=== PATIENT | male | born 1985 | race Two or more races ===

== ENCOUNTER 2021-07-29 14:03 | Inpatient (IN) | payer OTHER ==
[~2021-07-29] VITALS: Ht 172.7 cm; Wt 75.0 kg
[2021-07-29 20:12] LABS: BASOPHILS % (AUTO) 0.3 % (0.0-2.0); EOSINOPHILS % (AUTO) 0.7 % (1.0-6.0); HEMATOCRIT 39.7 % (41-53); HEMOGLOBIN 13.8 g/dL (13.5-17.5); LYMPHOCYTES # (AUTO) 1.7 K/uL (1.0-4.8); LYMPHOCYTES % (AUTO) 19.2 % (22.0-44.0); MEAN CORPUSCULAR HEMOGLOBIN 30.1 pg (26.0-34.0); MEAN CORPUSCULAR HGB CONC 34.8 G/dL (31.0-37.0); MEAN CORPUSCULAR VOLUME 87 fL (80-100); MONOCYTES # (AUTO) 0.5 K/uL (0.1-1.0); MONOCYTES % (AUTO) 5.8 % (2.0-9.0); NEUTROPHILS # (AUTO) 6.4 K/uL (1.8-7.7); PLATELET COUNT (AUTO) 388 K/uL (150-450); RED BLOOD CELL COUNT(AUTO) 4.59 MIL/uL (4.50-5.90); RED CELL DISTRIBUTION WIDTH 13.6 % (11.5-14.5)
[2021-07-29 20:32] LABS: ANION GAP 8 mmol/L (8-16); CALCIUM, TOTAL 9.7 mg/dL (8.8-10.5); CARBON DIOXIDE 29 mmol/L (22-29); CHLORIDE 103 mmol/L (98-107); CREATININE 1.05 mg/dL (0.60-1.30); GLOMERULAR FILTR. RATE CALC > 60 mL/min (>60); GLUCOSE,RANDOM 109 mg/dL (70-110); POTASSIUM 3.4 mmol/L (3.5-5.1); SODIUM SERUM 140 mmol/L (136-145); UREA NITROGEN, BLOOD 12 mg/dL (7-18)
[2021-07-29 20:37] LABS: ALANINE AMINOTRANSFERASE 17 U/L (12-78); ALBUMIN 3.6 g/dL (3.4-5.0); ALKALINE PHOSPHATASE 94 U/L (46-116); ASPARTATE AMINOTRANSFERASE 12 U/L (15-37); BILIRUBIN,TOTAL 0.7 mg/dL (0.1-1.0); TOTAL PROTEIN, SERUM 8.4 g/dL (6.4-8.2)
[2021-07-29] MEDS ORDERED: ONDANSETRON HCL 4 MG/2 ML VIAL IVP PRN (23:00)
[2021-07-29 23:13] LABS: COVID AG,FIA SOURCE NASAL SWAB
[2021-07-30] VITALS (8 sets, daily range): BP systolic 91–131; BP diastolic 20–82
[2021-07-30] MEDS: LORazepam 2 MG TABLET PO PRN ×2 (00:25→09:59)
[2021-07-30] MEDS ORDERED: LORazepam 2 MG TABLET PO PRN (07:00)
[2021-07-30] MEDS ORDERED: LOPERAMIDE HCL 2 MG CAPSULE PO PRN (14:30)
[2021-07-30] MEDS ORDERED: METOCLOPRAMIDE HCL 5 MG/ML 2 ML VIAL IVP PRN (14:30)
[2021-07-30] MEDS ORDERED: LORazepam 2 MG/ML VIAL IVP PRN (14:30)
[2021-07-30] MEDS: ACETAMINOPHEN 325 MG TABLET PO PRN (20:19)
[2021-07-30] MEDS: TEMAZEPAM 15 MG CAPSULE PO SCH (20:19)
[2021-07-31 04:27] VITALS: BP 122/76
[2021-07-31 08:00] VITALS: BP 129/71
[2021-07-31 11:00] VITALS: BP 114/64
[2021-07-31] MEDS: ACETAMINOPHEN 325 MG TABLET PO PRN ×2 (15:03→20:01)
[2021-07-31 15:53] VITALS: BP 97/52
[2021-07-31] MEDS: LORazepam 1 MG TABLET PO PRN (17:53)
[2021-07-31] MEDS: TEMAZEPAM 15 MG CAPSULE PO SCH (20:01)
[2021-07-31 20:42] VITALS: BP 119/66
[2021-07-31 20:57] LABS: AMPHET/METH SCREEN,URINE POSITIVE (NEGATIVE); BARBITURATE SCREEN, URINE NEGATIVE (NEGATIVE); BENZODIAZEPINES SCREEN,URINE NEGATIVE (NEGATIVE); CANNABINOID SCREEN,URINE NEGATIVE (NEGATIVE); COCAINE SCREEN,URINE NEGATIVE (NEGATIVE); METHADONE SCREEN, URINE NEGATIVE (NEGATIVE); OPIATE SCREEN,URINE NEGATIVE (NEGATIVE)
[2021-07-31 20:58] LABS: PHENCYCLIDINE SCREEN,URINE NEGATIVE (NEGATIVE)
[2021-08-01 05:07] VITALS: BP 109/67
[2021-08-01] MEDS ORDERED: LORazepam 1 MG TABLET PO PRN (07:00)
[2021-08-01] MEDS: DICYCLOMINE HCL 10 MG CAPSULE PO PRN ×2 (08:54→15:05)
[2021-08-01 11:00] VITALS: BP 102/71
[2021-08-01] MEDS: LORazepam 1 MG TABLET PO PRN (15:05)
[2021-08-01 16:24] VITALS: BP 102/73
[2021-08-01] MEDS: TEMAZEPAM 15 MG CAPSULE PO SCH (20:29)
[2021-08-01] MEDS: ACETAMINOPHEN 325 MG TABLET PO PRN (20:29)
[2021-08-02 04:42] VITALS: BP 116/64
[2021-08-02] MEDS ORDERED: LORazepam 1 MG TABLET PO PRN (07:00)
[2021-08-02 08:25] VITALS: BP 124/71
[2021-08-02] MEDS: LORazepam 1 MG TABLET PO PRN ×2 (12:24→20:41)
[2021-08-02] MEDS: DICYCLOMINE HCL 10 MG CAPSULE PO PRN (12:24)
[2021-08-02 16:09] VITALS: BP 106/70
[2021-08-02 19:55] VITALS: BP 110/67
[2021-08-02] MEDS: TEMAZEPAM 15 MG CAPSULE PO SCH (20:41)
[2021-08-03 05:17] VITALS: BP 105/56
[2021-08-03 09:24] VITALS: BP 141/70
[2021-08-03] MEDS: ALPRAZolam 1 MG TABLET PO PRN (14:23)
[2021-08-03 14:34] VITALS: BP 142/41
[2021-08-03 17:59] VITALS: BP 132/76
[2021-08-03 20:23] VITALS: BP 113/64
[2021-08-03] MEDS: TEMAZEPAM 15 MG CAPSULE PO SCH (20:36)
[2021-08-03] MEDS: DICYCLOMINE HCL 10 MG CAPSULE PO PRN (20:36)
[2021-08-04 00:40] VITALS: BP 104/64
[2021-08-04 04:22] VITALS: BP 105/68
[2021-08-04 08:24] VITALS: BP 112/66
[2021-08-04] MEDS: ALPRAZolam 1 MG TABLET PO PRN (11:50)
[2021-08-04] MEDS ORDERED: ALPR1TAB7 PO (13:30)
[2021-08-04] MEDS ORDERED: ONDA-104 PO (13:32)
[2021-08-04 16:47] VITALS: BP 112/66
== END 2021-08-04 16:56 | DRG 897 ==
LOC: EMS 14:17 → 6S 07-30 01:00
PROVIDERS: ADMIT Internal Medicine; ATTEND Internal Medicine
DX: F11.13 Opioid abuse with withdrawal (principal); F15.10 Other stimulant abuse, uncomplicated; Z20.822 Contact with and (suspected) exposure to COVID-19; F41.9 Anxiety disorder, unspecified; F17.210 Nicotine dependence, cigarettes, uncomplicated; E87.6 Hypokalemia
CPT/HCPCS: 80053; 85025; 99285; G0480

== ENCOUNTER 2021-09-18 13:59 | Inpatient (IN) | payer OTHER ==
[~2021-09-18] VITALS: Ht 172.7 cm; Wt 84.2 kg
[~2021-09-18 13:59] MED LIST: ALPR-709 PO; ONDA-104 PO
[2021-09-18] MEDS ORDERED: SODIUM CHLORIDE 0.9% 1,000 ML IV ONE ×3 (14:45→19:30)
[2021-09-18] MEDS ORDERED: KETOROLAC TROMETHAMINE 30 MG/ML VIAL IVP ONE (14:45)
[2021-09-18 14:46] LABS: BASOPHILS % (AUTO) 0.2 % (0.0-2.0); EOSINOPHILS % (AUTO) 0.4 % (1.0-6.0); HEMOGLOBIN 14.1 g/dL (13.5-17.5); LYMPHOCYTES # (AUTO) 1.3 K/uL (1.0-4.8); LYMPHOCYTES % (AUTO) 10.3 % (22.0-44.0); MEAN CORPUSCULAR HEMOGLOBIN 29.8 pg (26.0-34.0); MEAN CORPUSCULAR HGB CONC 34.3 G/dL (31.0-37.0); MEAN CORPUSCULAR VOLUME 87 fL (80-100); MONOCYTES # (AUTO) 0.9 K/uL (0.1-1.0); MONOCYTES % (AUTO) 7.4 % (2.0-9.0); NEUTROPHILS # (AUTO) 10.2 K/uL (1.8-7.7); NEUTROPHILS % (AUTO) 81.7 % (40.0-70.0); PLATELET COUNT (AUTO) 326 K/uL (150-450); RED BLOOD CELL COUNT(AUTO) 4.72 MIL/uL (4.50-5.90)
[2021-09-18 14:57] LABS: ANION GAP 9 mmol/L (8-16); CALCIUM, TOTAL 8.7 mg/dL (8.8-10.5); CARBON DIOXIDE 27 mmol/L (22-29); CHLORIDE 100 mmol/L (98-107); CREATININE 0.99 mg/dL (0.60-1.30); GLOMERULAR FILTR. RATE CALC > 60 mL/min (>60); GLUCOSE,RANDOM 171 mg/dL (70-110); POTASSIUM 3.5 mmol/L (3.5-5.1); SODIUM SERUM 136 mmol/L (136-145); UREA NITROGEN, BLOOD 13 mg/dL (7-18)
[2021-09-18 15:03] LABS: ALANINE AMINOTRANSFERASE 33 U/L (12-78); ALBUMIN 3.8 g/dL (3.4-5.0); ALKALINE PHOSPHATASE 92 U/L (46-116); ASPARTATE AMINOTRANSFERASE 25 U/L (15-37); BILIRUBIN,TOTAL 0.4 mg/dL (0.1-1.0); TOTAL PROTEIN, SERUM 7.7 g/dL (6.4-8.2)
[2021-09-18 15:06] LABS: AMPHET/METH SCREEN,URINE NEGATIVE (NEGATIVE); BARBITURATE SCREEN, URINE NEGATIVE (NEGATIVE); BENZODIAZEPINES SCREEN,URINE NEGATIVE (NEGATIVE); CANNABINOID SCREEN,URINE NEGATIVE (NEGATIVE); COCAINE SCREEN,URINE NEGATIVE (NEGATIVE); METHADONE SCREEN, URINE NEGATIVE (NEGATIVE); OPIATE SCREEN,URINE NEGATIVE (NEGATIVE)
[2021-09-18 15:07] LABS: B-TYPE NATRIURETIC PEPTIDE 88 pg/mL (0-100)
[2021-09-18 15:07] LABS: PHENCYCLIDINE SCREEN,URINE NEGATIVE (NEGATIVE)
[2021-09-18 15:08] LABS: APPEARANCE,URINE CLEAR (CLEAR); BILIRUBIN,URINE NEGATIVE (NEGATIVE); GLUCOSE, URINE (UA) NEGATIVE (NEGATIVE); KETONES,URINE NEGATIVE (NEGATIVE); LEUKOCYTE ESTERASE ,URINE NEGATIVE (NEGATIVE); NITRATE,URINE NEGATIVE (NEGATIVE); OCCULT BLOOD,URINE NEGATIVE (NEGATIVE); PH,URINE 6.5 (5.0-8.0); PROTEIN,URINE NEGATIVE (NEGATIVE); SPECIFIC GRAVITIY, URINE 1.013 (1.003-1.030); UROBILINOGEN,URINE <=1.0 mg/dL (<=1.0)
[2021-09-18 15:09] LABS: BACTERIA,URINE None Seen /HPF (None Seen); RBC,URINE None Seen /HPF (0-2); WBC,URINE None Seen /HPF (0-5)
[2021-09-18] MEDS ORDERED: LORazepam 2 MG/ML VIAL IVP ONE (17:30)
[2021-09-18 18:10] LABS: COVID AG,FIA SOURCE NASAL SWAB
[2021-09-18 18:17] LABS: D-DIMER 0.23 mg/L FEU (0.00-0.50); PROTHROMBIN TIME 10.5 SEC (9.4-11.6)
[2021-09-18] MEDS ORDERED: ACETAMINOPHEN 500 MG TABLET PO ONE (18:30)
[2021-09-18] MEDS ORDERED: MORPHINE SULFATE 4 MG/ML SYRINGE IVP ONE (18:30)
[2021-09-18] MEDS ORDERED: SODIUM CHLORIDE 0.9% 100 ML ONE (19:19)
[2021-09-18] MEDS ORDERED: IOHEXOL 350 MG/ML 75 ML VIAL ONE (19:19)
[2021-09-18] MEDS ORDERED: MORPHINE SULFATE 2 MG/ML SYRINGE IVP PRN (19:30)
[2021-09-18] MEDS ORDERED: HYDROCODONE/ACETAMINOPHEN 5-325 MG TABLET PO PRN (19:30)
[2021-09-18] MEDS ORDERED: LORazepam 2 MG/ML VIAL IVP PRN (19:30)
[2021-09-18] MEDS ORDERED: MAGNESIUM HYDROXIDE SUSPENSION 30 ML UDCUP PO PRN (19:30)
[2021-09-18] MEDS ORDERED: ONDANSETRON HCL 4 MG/2 ML VIAL IVP PRN (19:30)
[2021-09-18] MEDS ORDERED: BISACODYL 10 MG RECTAL RECTAL SUPPOSITORY PR PRN (19:30)
[2021-09-18] MEDS: DOCUSATE SODIUM 100 MG CAPSULE PO SCH (20:23)
[2021-09-18 22:39] VITALS: BP 109/74
[2021-09-19] MEDS ORDERED: *CLINICAL-LEVOFLOXACIN IVPB DOSING CLINICAL ONE ×2
[2021-09-19] MEDS: ALPRAZolam 1 MG TABLET PO PRN ×2 (00:39→09:48)
[2021-09-19] MEDS: HEPARIN SODIUM,PORCINE 5,000 UNITS/ML VIAL SQ SCH ×3 (00:39→17:30)
[2021-09-19] MEDS ORDERED: LEVOFLOXACIN 500 MG/D5% WATER 100 ML IV SCH (01:00)
[2021-09-19 04:39] VITALS: BP 105/56
[2021-09-19] MEDS: ACETAMINOPHEN 325 MG TABLET PO PRN (06:23)
[2021-09-19 08:59] VITALS: BP 95/47
[2021-09-19 09:49] LABS: ALANINE AMINOTRANSFERASE 17 U/L (12-78); ALBUMIN 3.3 g/dL (3.4-5.0); ALKALINE PHOSPHATASE 69 U/L (46-116); ANION GAP 5 mmol/L (8-16); ASPARTATE AMINOTRANSFERASE 45 U/L (15-37); BILIRUBIN,TOTAL 1.1 mg/dL (0.1-1.0); CALCIUM, TOTAL 8.7 mg/dL (8.8-10.5); CARBON DIOXIDE 27 mmol/L (22-29); CHLORIDE 101 mmol/L (98-107); CREATININE 0.88 mg/dL (0.60-1.30); GLOMERULAR FILTR. RATE CALC > 60 mL/min (>60); GLUCOSE,RANDOM 96 mg/dL (70-110); POTASSIUM 3.9 mmol/L (3.5-5.1); SODIUM SERUM 133 mmol/L (136-145); THYROID STIMULATING HORMONE 1.28 uIU/mL (0.36-3.74); UREA NITROGEN, BLOOD 11 mg/dL (7-18)
[2021-09-19] MEDS: DOCUSATE SODIUM 100 MG CAPSULE PO SCH ×2 (09:49→21:19)
[2021-09-19] MEDS: PANTOPRAZOLE SODIUM 40 MG DR TABLET PO SCH (09:51)
[2021-09-19] MEDS ORDERED: NALOXONE HCL 1 MG/ML 2 ML SYRINGE IM ONE (11:47)
[2021-09-19 11:59] LABS: ABG BASE EXCESS 0.4 mmol/L (-2.0-3.0); ABG CARBOXYHEMOGLOBIN 1.2 % (0.0-1.5); ABG HCO3 24.1 mmol/L (22.0-26.0); ABG METHEMOGLOBIN 0.3 % (0.0-1.5); ABG OXYGEN CONTENT 17.3 mL/dL (15.0-23.0); ABG OXYGEN SATURATION 93.7 % (95.0-98.0); ABG OXYHEMOGLOBIN 92.3 % (94.0-100.0); ABG PCO2 53 mmHg (35-45); ABG PH 7.318 (7.350-7.450); ABG TOTAL HEMOGLOBIN 13.3 G/dL (12.0-18.0); PO2, ARTERIAL BG 71.3 mmHg (92.0-100.0); SOURCE, BLOOD GAS ARTERIAL; TEMPERATURE, FAHRENHEIT, BG 98.6 FAHREN (96.0-98.6)
[2021-09-19 12:02] LABS: ABG A-A DIFF O2 123.9 mmHg (10-20.0); O2 DEVICE,BLOOD GAS CANNULA (ROOM AIR); SITE, BLOOD GAS RT RADIAL
[2021-09-19 12:15] VITALS: BP 117/61
[2021-09-19] MEDS: SERTRALINE HCL 50 MG TABLET PO SCH (13:11)
[2021-09-19 15:50] VITALS: BP 110/65
[2021-09-19 18:16] LABS: GLUCOMETER DEV NAME(LOC) 5S.2B; GLUCOSE,POINT OF CARE 191 MG/DL (70-110)
[2021-09-19 19:22] LABS: AMPHET/METH SCREEN,URINE NEGATIVE (NEGATIVE); BARBITURATE SCREEN, URINE NEGATIVE (NEGATIVE); BENZODIAZEPINES SCREEN,URINE POSITIVE (NEGATIVE); CANNABINOID SCREEN,URINE NEGATIVE (NEGATIVE); COCAINE SCREEN,URINE NEGATIVE (NEGATIVE); METHADONE SCREEN, URINE NEGATIVE (NEGATIVE); OPIATE SCREEN,URINE POSITIVE (NEGATIVE)
[2021-09-19 19:24] LABS: PHENCYCLIDINE SCREEN,URINE NEGATIVE (NEGATIVE)
[2021-09-19] MEDS: TraZODone HCL 50 MG TABLET PO SCH (21:19)
[2021-09-20] VITALS: BP 117/62
[2021-09-20] MEDS: HEPARIN SODIUM,PORCINE 5,000 UNITS/ML VIAL SQ SCH ×2 (00:17→08:35)
[2021-09-20 03:57] VITALS: BP 96/52
[2021-09-20 06:53] LABS: ANION GAP 5 mmol/L (8-16); CALCIUM, TOTAL 8.3 mg/dL (8.8-10.5); CARBON DIOXIDE 29 mmol/L (22-29); CHLORIDE 102 mmol/L (98-107); CREATININE 0.82 mg/dL (0.60-1.30); GLOMERULAR FILTR. RATE CALC > 60 mL/min (>60); GLUCOSE,RANDOM 99 mg/dL (70-110); POTASSIUM 3.6 mmol/L (3.5-5.1); SODIUM SERUM 136 mmol/L (136-145); UREA NITROGEN, BLOOD 11 mg/dL (7-18)
[2021-09-20 06:55] LABS: BASOPHILS % (AUTO) 0.2 % (0.0-2.0); EOSINOPHILS % (AUTO) 1.7 % (1.0-6.0); HEMATOCRIT 34.5 % (41-53); LYMPHOCYTES # (AUTO) 1.5 K/uL (1.0-4.8); LYMPHOCYTES % (AUTO) 16.3 % (22.0-44.0); MEAN CORPUSCULAR HEMOGLOBIN 30.6 pg (26.0-34.0); MEAN CORPUSCULAR HGB CONC 34.7 G/dL (31.0-37.0); MEAN CORPUSCULAR VOLUME 88 fL (80-100); MONOCYTES # (AUTO) 1.1 K/uL (0.1-1.0); MONOCYTES % (AUTO) 12.1 % (2.0-9.0); NEUTROPHILS # (AUTO) 6.4 K/uL (1.8-7.7); NEUTROPHILS % (AUTO) 69.7 % (40.0-70.0); PLATELET COUNT (AUTO) 229 K/uL (150-450); RED BLOOD CELL COUNT(AUTO) 3.91 MIL/uL (4.50-5.90); RED CELL DISTRIBUTION WIDTH 14.1 % (11.5-14.5)
[2021-09-20] MEDS: DOCUSATE SODIUM 100 MG CAPSULE PO SCH ×2 (08:34→21:50)
[2021-09-20] MEDS: PANTOPRAZOLE SODIUM 40 MG DR TABLET PO SCH (08:34)
[2021-09-20] MEDS: SERTRALINE HCL 50 MG TABLET PO SCH (08:34)
[2021-09-20 09:22] VITALS: BP 92/50
[2021-09-20 15:10] VITALS: BP 114/62
[2021-09-20] MEDS: TraZODone HCL 50 MG TABLET PO SCH (21:50)
[2021-09-20 21:51] VITALS: BP 103/61
[2021-09-21 02:13] VITALS: BP 101/61
[2021-09-21 05:38] VITALS: BP 100/58
[2021-09-21] MEDS: DOCUSATE SODIUM 100 MG CAPSULE PO SCH ×2 (09:00→20:35)
[2021-09-21 09:06] VITALS: BP 110/66
[2021-09-21] MEDS: SERTRALINE HCL 50 MG TABLET PO SCH (10:47)
[2021-09-21] MEDS: ACETAMINOPHEN 325 MG TABLET PO PRN (10:47)
[2021-09-21] MEDS: PANTOPRAZOLE SODIUM 40 MG DR TABLET PO SCH (10:47)
[2021-09-21 12:03] VITALS: BP 122/65
[2021-09-21 16:44] VITALS: BP 116/69
[2021-09-21 20:00] VITALS: BP 118/62
[2021-09-21] MEDS: TraZODone HCL 50 MG TABLET PO SCH (20:35)
[2021-09-22 00:11] VITALS: BP 120/71
[2021-09-22 04:50] VITALS: BP 110/63
[2021-09-22 08:05] VITALS: BP 124/69
[2021-09-22] MEDS: DOCUSATE SODIUM 100 MG CAPSULE PO SCH ×2 (09:00→20:39)
[2021-09-22] MEDS: SERTRALINE HCL 50 MG TABLET PO SCH (09:06)
[2021-09-22] MEDS: PANTOPRAZOLE SODIUM 40 MG DR TABLET PO SCH (09:06)
[2021-09-22 11:51] VITALS: BP 110/97
[2021-09-22 16:43] VITALS: BP 111/78
[2021-09-22] MEDS: ACETAMINOPHEN 325 MG TABLET PO PRN (20:40)
[2021-09-22] MEDS: TraZODone HCL 50 MG TABLET PO SCH (20:40)
[2021-09-22 21:05] VITALS: BP 119/69
[2021-09-23 01:12] VITALS: BP 142/66
[2021-09-23 04:00] VITALS: BP 108/80
[2021-09-23 08:18] VITALS: BP 123/71
[2021-09-23] MEDS: PANTOPRAZOLE SODIUM 40 MG DR TABLET PO SCH (10:07)
[2021-09-23] MEDS: PredniSONE 10 MG TABLET PO SCH (10:07)
[2021-09-23] MEDS: DOCUSATE SODIUM 100 MG CAPSULE PO SCH ×2 (10:07→22:32)
[2021-09-23 11:30] VITALS: BP 114/78
[2021-09-23] MEDS: SERTRALINE HCL 50 MG TABLET PO SCH (15:36)
[2021-09-23 16:06] VITALS: BP 122/73
[2021-09-23 20:00] VITALS: BP 117/75
[2021-09-23] MEDS: TraZODone HCL 50 MG TABLET PO SCH (22:32)
[2021-09-24] VITALS: BP 119/68
[2021-09-24 06:53] VITALS: BP 113/72
[2021-09-24] MEDS: PredniSONE 10 MG TABLET PO SCH (08:24)
[2021-09-24] MEDS: PANTOPRAZOLE SODIUM 40 MG DR TABLET PO SCH (08:25)
[2021-09-24] MEDS: DOCUSATE SODIUM 100 MG CAPSULE PO SCH ×2 (08:25→21:06)
[2021-09-24] MEDS: SERTRALINE HCL 50 MG TABLET PO SCH (08:25)
[2021-09-24 08:46] VITALS: BP 114/83
[2021-09-24 13:19] VITALS: BP 118/74
[2021-09-24 16:33] VITALS: BP 119/75
[2021-09-24] MEDS: TraZODone HCL 50 MG TABLET PO SCH (21:06)
[2021-09-25] VITALS: BP 117/75
[2021-09-25 08:15] VITALS: BP 109/67
[2021-09-25] MEDS: PredniSONE 10 MG TABLET PO SCH (08:27)
[2021-09-25] MEDS: ACETAMINOPHEN 325 MG TABLET PO PRN ×2 (08:28→20:32)
[2021-09-25] MEDS: PANTOPRAZOLE SODIUM 40 MG DR TABLET PO SCH (08:28)
[2021-09-25] MEDS: SERTRALINE HCL 50 MG TABLET PO SCH (08:29)
[2021-09-25] MEDS: DOCUSATE SODIUM 100 MG CAPSULE PO SCH ×2 (08:29→20:32)
[2021-09-25 12:20] VITALS: BP 100/64
[2021-09-25 16:07] VITALS: BP 119/68
[2021-09-25] MEDS: MethylPREDNISolone SOD SUCC 40 MG/ML VIAL IVP SCH (18:29)
[2021-09-25 20:12] VITALS: BP 119/60
[2021-09-25] MEDS: TraZODone HCL 50 MG TABLET PO SCH (20:32)
[2021-09-25] MEDS: ZOLPIDEM TARTRATE 5 MG TABLET PO PRN (22:37)
[2021-09-26] MEDS: MethylPREDNISolone SOD SUCC 40 MG/ML VIAL IVP SCH ×2 (00:47→07:34)
[2021-09-26 05:13] VITALS: BP 116/72
[2021-09-26 08:06] LABS: QUANTIFERON, TB GOLD PLUS Positive (Negative)
[2021-09-26 08:07] VITALS: BP 122/77
[2021-09-26] MEDS: DOCUSATE SODIUM 100 MG CAPSULE PO SCH ×2 (09:24→20:55)
[2021-09-26] MEDS: PANTOPRAZOLE SODIUM 40 MG DR TABLET PO SCH (09:24)
[2021-09-26] MEDS: SERTRALINE HCL 50 MG TABLET PO SCH (09:24)
[2021-09-26] MEDS: PredniSONE 10 MG TABLET PO SCH (09:25)
[2021-09-26 16:00] VITALS: BP 121/71
[2021-09-26 20:16] VITALS: BP 124/73
[2021-09-26] MEDS: TraZODone HCL 50 MG TABLET PO SCH (20:55)
[2021-09-26] MEDS ORDERED: SODIUM CHLORIDE 3% 15 ML NEB SOLUTION NEB ONE (22:32)
[2021-09-26] MEDS: ZOLPIDEM TARTRATE 5 MG TABLET PO PRN (22:42)
[2021-09-27 00:41] VITALS: BP 117/65
[2021-09-27 05:13] VITALS: BP 123/67
[2021-09-27] MEDS: SERTRALINE HCL 50 MG TABLET PO SCH (08:25)
[2021-09-27] MEDS: PANTOPRAZOLE SODIUM 40 MG DR TABLET PO SCH (08:25)
[2021-09-27] MEDS: DOCUSATE SODIUM 100 MG CAPSULE PO SCH ×2 (08:25→20:36)
[2021-09-27 08:58] VITALS: BP 125/71
[2021-09-27 20:00] VITALS: BP 121/68
[2021-09-27] MEDS: TraZODone HCL 50 MG TABLET PO SCH (20:35)
[2021-09-27] MEDS: ZOLPIDEM TARTRATE 5 MG TABLET PO PRN (20:39)
[2021-09-28 06:20] VITALS: BP 116/72
[2021-09-28] MEDS: DOCUSATE SODIUM 100 MG CAPSULE PO SCH ×2 (08:13→20:03)
[2021-09-28] MEDS: PANTOPRAZOLE SODIUM 40 MG DR TABLET PO SCH (08:13)
[2021-09-28] MEDS: SERTRALINE HCL 50 MG TABLET PO SCH (08:13)
[2021-09-28 08:30] VITALS: BP 118/71
[2021-09-28 19:53] VITALS: BP 104/69
[2021-09-28] MEDS: TraZODone HCL 50 MG TABLET PO SCH (20:03)
[2021-09-28] MEDS: ZOLPIDEM TARTRATE 5 MG TABLET PO PRN (20:08)
[2021-09-29 04:28] VITALS: BP 120/67
[2021-09-29 08:00] VITALS: BP 118/72
[2021-09-29] MEDS: SERTRALINE HCL 50 MG TABLET PO SCH (08:12)
[2021-09-29] MEDS: PANTOPRAZOLE SODIUM 40 MG DR TABLET PO SCH (08:12)
[2021-09-29] MEDS: DOCUSATE SODIUM 100 MG CAPSULE PO SCH ×2 (08:12→20:30)
[2021-09-29] MEDS: PredniSONE 20 MG TABLET PO SCH (15:16)
[2021-09-29 15:52] VITALS: BP 101/64
[2021-09-29] MEDS: TraZODone HCL 50 MG TABLET PO SCH (20:30)
[2021-09-29] MEDS: ZOLPIDEM TARTRATE 5 MG TABLET PO PRN (20:30)
[2021-09-29 20:35] VITALS: BP 115/71
[2021-09-30 04:55] VITALS: BP 113/70
[2021-09-30 07:30] VITALS: BP 105/69
[2021-09-30] MEDS: DOCUSATE SODIUM 100 MG CAPSULE PO SCH ×2 (08:22→20:46)
[2021-09-30] MEDS: SERTRALINE HCL 50 MG TABLET PO SCH (08:22)
[2021-09-30] MEDS: PANTOPRAZOLE SODIUM 40 MG DR TABLET PO SCH (08:22)
[2021-09-30] MEDS: PredniSONE 20 MG TABLET PO SCH (08:22)
[2021-09-30 15:25] VITALS: BP 120/72
[2021-09-30 20:25] VITALS: BP 120/70
[2021-09-30] MEDS: TraZODone HCL 50 MG TABLET PO SCH (20:46)
[2021-09-30] MEDS: ZOLPIDEM TARTRATE 5 MG TABLET PO PRN (20:46)
[2021-10-01 05:25] VITALS: BP 118/76
[2021-10-01 07:40] VITALS: BP 116/70
[2021-10-01] MEDS: PredniSONE 20 MG TABLET PO SCH (08:47)
[2021-10-01] MEDS: PANTOPRAZOLE SODIUM 40 MG DR TABLET PO SCH (08:48)
[2021-10-01] MEDS: DOCUSATE SODIUM 100 MG CAPSULE PO SCH ×2 (08:48→21:35)
[2021-10-01] MEDS: SERTRALINE HCL 50 MG TABLET PO SCH (08:48)
[2021-10-01 15:38] VITALS: BP 114/74
[2021-10-01 20:25] VITALS: BP 118/75
[2021-10-01] MEDS: TraZODone HCL 50 MG TABLET PO SCH (21:35)
[2021-10-02 04:40] VITALS: BP 127/70
[2021-10-02 08:13] VITALS: BP 132/81
[2021-10-02] MEDS: DOCUSATE SODIUM 100 MG CAPSULE PO SCH ×2 (09:03→20:21)
[2021-10-02] MEDS: SERTRALINE HCL 50 MG TABLET PO SCH (09:04)
[2021-10-02] MEDS: PANTOPRAZOLE SODIUM 40 MG DR TABLET PO SCH (09:04)
[2021-10-02] MEDS: PredniSONE 20 MG TABLET PO SCH (09:04)
[2021-10-02 16:04] VITALS: BP 129/83
[2021-10-02] MEDS: ZOLPIDEM TARTRATE 5 MG TABLET PO PRN (20:21)
[2021-10-02] MEDS: TraZODone HCL 50 MG TABLET PO SCH (20:21)
[2021-10-02 20:29] VITALS: BP 123/69
[2021-10-03 04:25] VITALS: BP 117/66
[2021-10-03 08:10] VITALS: BP 115/70
[2021-10-03] MEDS: SERTRALINE HCL 50 MG TABLET PO SCH (08:16)
[2021-10-03] MEDS: PANTOPRAZOLE SODIUM 40 MG DR TABLET PO SCH (08:16)
[2021-10-03] MEDS: PredniSONE 20 MG TABLET PO SCH (08:16)
[2021-10-03] MEDS: DOCUSATE SODIUM 100 MG CAPSULE PO SCH ×2 (08:18→20:21)
[2021-10-03 15:50] VITALS: BP 113/71
[2021-10-03 19:55] VITALS: BP 126/71
[2021-10-03] MEDS: TraZODone HCL 50 MG TABLET PO SCH (20:21)
[2021-10-04 04:50] VITALS: BP 121/72
[2021-10-04 07:57] VITALS: BP 123/73
[2021-10-04] MEDS: SERTRALINE HCL 50 MG TABLET PO SCH (08:14)
[2021-10-04] MEDS: PredniSONE 20 MG TABLET PO SCH (08:14)
[2021-10-04] MEDS: PANTOPRAZOLE SODIUM 40 MG DR TABLET PO SCH (08:14)
[2021-10-04] MEDS: DOCUSATE SODIUM 100 MG CAPSULE PO SCH ×2 (08:18→20:55)
[2021-10-04 10:07] LABS: HIV 1-2 SCREEN 4TH GEN W/RFLX Non Reactive (Non Reactive)
[2021-10-04] MEDS: MULTIVITAMINS WITH MINERALS, THERAPEUTIC TABLET PO SCH (13:12)
[2021-10-04 13:28] LABS: BASOPHILS % (AUTO) 0.2 % (0.0-2.0); EOSINOPHILS % (AUTO) 0.1 % (1.0-6.0); HEMATOCRIT 42.3 % (41-53); HEMOGLOBIN 14.5 g/dL (13.5-17.5); LYMPHOCYTES # (AUTO) 1.3 K/uL (1.0-4.8); LYMPHOCYTES % (AUTO) 8.1 % (22.0-44.0); MEAN CORPUSCULAR HGB CONC 34.2 G/dL (31.0-37.0); MEAN CORPUSCULAR VOLUME 88 fL (80-100); MONOCYTES # (AUTO) 0.5 K/uL (0.1-1.0); MONOCYTES % (AUTO) 3.4 % (2.0-9.0); NEUTROPHILS # (AUTO) 13.7 K/uL (1.8-7.7); NEUTROPHILS % (AUTO) 88.2 % (40.0-70.0); PLATELET COUNT (AUTO) 496 K/uL (150-450); RED BLOOD CELL COUNT(AUTO) 4.82 MIL/uL (4.50-5.90)
[2021-10-04 13:45] LABS: ALANINE AMINOTRANSFERASE 26 U/L (12-78); ALBUMIN 3.4 g/dL (3.4-5.0); ALKALINE PHOSPHATASE 106 U/L (46-116); ANION GAP 8 mmol/L (8-16); ASPARTATE AMINOTRANSFERASE 9 U/L (15-37); BILIRUBIN,TOTAL 0.2 mg/dL (0.1-1.0); CALCIUM, TOTAL 8.9 mg/dL (8.8-10.5); CARBON DIOXIDE 30 mmol/L (22-29); CHLORIDE 99 mmol/L (98-107); CREATININE 1.01 mg/dL (0.60-1.30); GLOMERULAR FILTR. RATE CALC > 60 mL/min (>60); GLUCOSE,RANDOM 172 mg/dL (70-110); POTASSIUM 4.2 mmol/L (3.5-5.1); SODIUM SERUM 137 mmol/L (136-145); TOTAL PROTEIN, SERUM 7.1 g/dL (6.4-8.2); UREA NITROGEN, BLOOD 17 mg/dL (7-18)
[2021-10-04 16:11] VITALS: BP 103/69
[2021-10-04 19:55] VITALS: BP 123/73
[2021-10-04] MEDS: TraZODone HCL 50 MG TABLET PO SCH (20:55)
[2021-10-05 04:55] VITALS: BP 118/72
[2021-10-05 08:05] VITALS: BP_SYST 119; BP_SYST 123; BP_DIAS 69; BP_DIAS 78
[2021-10-05] MEDS: ACETAMINOPHEN 325 MG TABLET PO PRN (08:12)
[2021-10-05] MEDS: PANTOPRAZOLE SODIUM 40 MG DR TABLET PO SCH (08:12)
[2021-10-05] MEDS: DOCUSATE SODIUM 100 MG CAPSULE PO SCH ×2 (08:12→21:00)
[2021-10-05] MEDS: SERTRALINE HCL 50 MG TABLET PO SCH (08:12)
[2021-10-05] MEDS: MULTIVITAMINS WITH MINERALS, THERAPEUTIC TABLET PO SCH (08:13)
[2021-10-05] MEDS: PredniSONE 20 MG TABLET PO SCH (08:13)
[2021-10-05 16:25] VITALS: BP 123/72
[2021-10-05 20:25] VITALS: BP 113/71
[2021-10-05] MEDS: TraZODone HCL 50 MG TABLET PO SCH (21:27)
[2021-10-06 04:48] VITALS: BP 121/73
[2021-10-06 08:02] VITALS: BP 129/81
[2021-10-06] MEDS: DOCUSATE SODIUM 100 MG CAPSULE PO SCH ×2 (09:00→20:24)
[2021-10-06] MEDS: PANTOPRAZOLE SODIUM 40 MG DR TABLET PO SCH (09:45)
[2021-10-06] MEDS: MULTIVITAMINS WITH MINERALS, THERAPEUTIC TABLET PO SCH (09:45)
[2021-10-06] MEDS: PredniSONE 20 MG TABLET PO SCH (09:45)
[2021-10-06] MEDS: SERTRALINE HCL 50 MG TABLET PO SCH (09:51)
[2021-10-06 16:01] VITALS: BP 131/76
[2021-10-06 20:08] VITALS: BP 114/76
[2021-10-06] MEDS: TraZODone HCL 50 MG TABLET PO SCH (20:24)
[2021-10-07 05:10] VITALS: BP 143/78
[2021-10-07 08:01] VITALS: BP 127/76
[2021-10-07] MEDS: PredniSONE 20 MG TABLET PO SCH (09:14)
[2021-10-07] MEDS: DOCUSATE SODIUM 100 MG CAPSULE PO SCH ×2 (09:14→21:42)
[2021-10-07] MEDS: MULTIVITAMINS WITH MINERALS, THERAPEUTIC TABLET PO SCH (09:15)
[2021-10-07] MEDS: PANTOPRAZOLE SODIUM 40 MG DR TABLET PO SCH (09:15)
[2021-10-07] MEDS: SERTRALINE HCL 50 MG TABLET PO SCH (09:16)
[2021-10-07 16:15] VITALS: BP 107/72
[2021-10-07 20:23] VITALS: BP 116/75
[2021-10-07] MEDS: TraZODone HCL 50 MG TABLET PO SCH (21:42)
[2021-10-08 05:33] VITALS: BP 117/76
[2021-10-08 07:31] VITALS: BP 121/73
[2021-10-08] MEDS: MULTIVITAMINS WITH MINERALS, THERAPEUTIC TABLET PO SCH (08:51)
[2021-10-08] MEDS: DOCUSATE SODIUM 100 MG CAPSULE PO SCH ×2 (08:51→20:16)
[2021-10-08] MEDS: SERTRALINE HCL 50 MG TABLET PO SCH (08:51)
[2021-10-08] MEDS: PredniSONE 20 MG TABLET PO SCH (08:51)
[2021-10-08] MEDS: PANTOPRAZOLE SODIUM 40 MG DR TABLET PO SCH (08:51)
[2021-10-08 15:34] VITALS: BP 120/76
[2021-10-08 20:15] VITALS: BP 115/73
[2021-10-08] MEDS: TraZODone HCL 50 MG TABLET PO SCH (20:16)
[2021-10-09 05:33] VITALS: BP 124/84
[2021-10-09 08:15] VITALS: BP 124/74
[2021-10-09] MEDS: PredniSONE 20 MG TABLET PO SCH (09:03)
[2021-10-09] MEDS: SERTRALINE HCL 50 MG TABLET PO SCH (09:03)
[2021-10-09] MEDS: MULTIVITAMINS WITH MINERALS, THERAPEUTIC TABLET PO SCH (09:03)
[2021-10-09] MEDS: DOCUSATE SODIUM 100 MG CAPSULE PO SCH ×2 (09:03→21:00)
[2021-10-09] MEDS: PANTOPRAZOLE SODIUM 40 MG DR TABLET PO SCH (09:03)
[2021-10-09 15:40] VITALS: BP 122/68
[2021-10-09 17:09] VITALS: BP 135/95
[2021-10-09 20:39] VITALS: BP 122/81
[2021-10-09] MEDS: TraZODone HCL 50 MG TABLET PO SCH (20:50)
[2021-10-09] MEDS: ACETAMINOPHEN 325 MG TABLET PO PRN (20:50)
[2021-10-10 05:37] VITALS: BP 125/70
[2021-10-10 07:03] LABS: BASOPHILS % (AUTO) 0.2 % (0.0-2.0); EOSINOPHILS % (AUTO) 0.6 % (1.0-6.0); HEMATOCRIT 40.8 % (41-53); HEMOGLOBIN 14.5 g/dL (13.5-17.5); LYMPHOCYTES # (AUTO) 2.2 K/uL (1.0-4.8); MEAN CORPUSCULAR HEMOGLOBIN 30.9 pg (26.0-34.0); MEAN CORPUSCULAR HGB CONC 35.5 G/dL (31.0-37.0); MEAN CORPUSCULAR VOLUME 87 fL (80-100); MONOCYTES # (AUTO) 0.8 K/uL (0.1-1.0); MONOCYTES % (AUTO) 6.3 % (2.0-9.0); NEUTROPHILS % (AUTO) 74.9 % (40.0-70.0); PLATELET COUNT (AUTO) 412 K/uL (150-450); RED CELL DISTRIBUTION WIDTH 14.4 % (11.5-14.5)
[2021-10-10 07:18] LABS: ANION GAP 6 mmol/L (8-16); CALCIUM, TOTAL 9.1 mg/dL (8.8-10.5); CARBON DIOXIDE 31 mmol/L (22-29); CHLORIDE 102 mmol/L (98-107); CREATININE 0.96 mg/dL (0.60-1.30); GLOMERULAR FILTR. RATE CALC > 60 mL/min (>60); GLUCOSE,RANDOM 122 mg/dL (70-110); POTASSIUM 3.8 mmol/L (3.5-5.1); SODIUM SERUM 139 mmol/L (136-145); UREA NITROGEN, BLOOD 14 mg/dL (7-18)
[2021-10-10 07:57] VITALS: BP 113/77
[2021-10-10] MEDS: DOCUSATE SODIUM 100 MG CAPSULE PO SCH ×2 (08:26→20:13)
[2021-10-10] MEDS: PredniSONE 10 MG TABLET PO SCH (08:26)
[2021-10-10] MEDS: MULTIVITAMINS WITH MINERALS, THERAPEUTIC TABLET PO SCH (08:26)
[2021-10-10] MEDS: PANTOPRAZOLE SODIUM 40 MG DR TABLET PO SCH (08:26)
[2021-10-10] MEDS: SERTRALINE HCL 50 MG TABLET PO SCH (08:26)
[2021-10-10] MEDS ORDERED: SODIUM CHLORIDE 0.9% 500 ML IV ONE (11:22)
[2021-10-10] MEDS: AMPICILLIN SODIUM/SULBACTAM NA 3 GM in SODIUM CHLORIDE 0.9% 100 ML IV SCH ×3 (11:33→23:22)
[2021-10-10 16:08] VITALS: BP 131/75
[2021-10-10 19:36] VITALS: BP 139/79
[2021-10-10] MEDS: TraZODone HCL 50 MG TABLET PO SCH (20:13)
[2021-10-11 04:57] VITALS: BP 138/84
[2021-10-11] MEDS: AMPICILLIN SODIUM/SULBACTAM NA 3 GM in SODIUM CHLORIDE 0.9% 100 ML IV SCH ×3 (05:30→17:31)
[2021-10-11 08:04] VITALS: BP 118/61
[2021-10-11] MEDS: SERTRALINE HCL 50 MG TABLET PO SCH (08:29)
[2021-10-11] MEDS: PredniSONE 10 MG TABLET PO SCH (08:29)
[2021-10-11] MEDS: DOCUSATE SODIUM 100 MG CAPSULE PO SCH ×2 (08:29→20:39)
[2021-10-11] MEDS: PANTOPRAZOLE SODIUM 40 MG DR TABLET PO SCH (08:29)
[2021-10-11] MEDS: MULTIVITAMINS WITH MINERALS, THERAPEUTIC TABLET PO SCH (08:29)
[2021-10-11 16:12] VITALS: BP 123/65
[2021-10-11] MEDS ORDERED: SODIUM CHLORIDE 0.9% 500 ML IV ONE (17:57)
[2021-10-11] MEDS: TraZODone HCL 50 MG TABLET PO SCH (20:39)
[2021-10-11 20:45] VITALS: BP 122/72
[2021-10-12] MEDS: AMPICILLIN SODIUM/SULBACTAM NA 3 GM in SODIUM CHLORIDE 0.9% 100 ML IV SCH ×4 (00:07→18:27)
[2021-10-12 04:56] VITALS: BP 124/79
[2021-10-12 08:10] VITALS: BP 129/78
[2021-10-12] MEDS: MULTIVITAMINS WITH MINERALS, THERAPEUTIC TABLET PO SCH (08:16)
[2021-10-12] MEDS: PredniSONE 10 MG TABLET PO SCH (08:16)
[2021-10-12] MEDS: SERTRALINE HCL 50 MG TABLET PO SCH (08:16)
[2021-10-12] MEDS: PANTOPRAZOLE SODIUM 40 MG DR TABLET PO SCH (08:16)
[2021-10-12] MEDS: DOCUSATE SODIUM 100 MG CAPSULE PO SCH ×2 (08:16→19:46)
[2021-10-12] MEDS: AZITHROMYCIN 500 MG TABLET PO SCH (15:35)
[2021-10-12 15:55] VITALS: BP 126/76
[2021-10-12] MEDS: TraZODone HCL 50 MG TABLET PO SCH (19:46)
[2021-10-12 20:48] VITALS: BP 134/80
[2021-10-13] MEDS: AMPICILLIN SODIUM/SULBACTAM NA 3 GM in SODIUM CHLORIDE 0.9% 100 ML IV SCH ×5 (00:22→23:35)
[2021-10-13 05:25] VITALS: BP 112/73
[2021-10-13 07:53] VITALS: BP 139/83
[2021-10-13] MEDS: AZITHROMYCIN 500 MG TABLET PO SCH (08:38)
[2021-10-13] MEDS: PredniSONE 10 MG TABLET PO SCH (08:38)
[2021-10-13] MEDS: SERTRALINE HCL 50 MG TABLET PO SCH (08:39)
[2021-10-13] MEDS: DOCUSATE SODIUM 100 MG CAPSULE PO SCH ×2 (08:39→19:59)
[2021-10-13] MEDS: PANTOPRAZOLE SODIUM 40 MG DR TABLET PO SCH (08:39)
[2021-10-13] MEDS: MULTIVITAMINS WITH MINERALS, THERAPEUTIC TABLET PO SCH (08:39)
[2021-10-13 16:08] VITALS: BP 131/84
[2021-10-13 19:44] VITALS: BP 114/75
[2021-10-13] MEDS: TraZODone HCL 50 MG TABLET PO SCH (19:59)
[2021-10-14] MEDS: AMPICILLIN SODIUM/SULBACTAM NA 3 GM in SODIUM CHLORIDE 0.9% 100 ML IV SCH ×4 (05:26→23:14)
[2021-10-14 05:33] VITALS: BP 122/78
[2021-10-14 07:32] VITALS: BP 117/71
[2021-10-14] MEDS: SERTRALINE HCL 50 MG TABLET PO SCH (08:09)
[2021-10-14] MEDS: MULTIVITAMINS WITH MINERALS, THERAPEUTIC TABLET PO SCH (08:09)
[2021-10-14] MEDS: PANTOPRAZOLE SODIUM 40 MG DR TABLET PO SCH (08:09)
[2021-10-14] MEDS: AZITHROMYCIN 500 MG TABLET PO SCH (08:09)
[2021-10-14] MEDS: DOCUSATE SODIUM 100 MG CAPSULE PO SCH ×2 (08:09→19:53)
[2021-10-14] MEDS: PredniSONE 10 MG TABLET PO SCH (08:09)
[2021-10-14 15:25] VITALS: BP 120/67
[2021-10-14] MEDS: TraZODone HCL 50 MG TABLET PO SCH (19:53)
[2021-10-14 20:14] VITALS: BP 112/66
[2021-10-15 04:16] VITALS: BP 117/75
[2021-10-15] MEDS: AMPICILLIN SODIUM/SULBACTAM NA 3 GM in SODIUM CHLORIDE 0.9% 100 ML IV SCH ×4 (05:16→23:15)
[2021-10-15] MEDS ORDERED: SODIUM CHLORIDE 0.9% 500 ML IV ONE (05:18)
[2021-10-15] MEDS: PANTOPRAZOLE SODIUM 40 MG DR TABLET PO SCH (08:30)
[2021-10-15] MEDS: ACETAMINOPHEN 325 MG TABLET PO PRN (08:30)
[2021-10-15] MEDS: SERTRALINE HCL 50 MG TABLET PO SCH (08:30)
[2021-10-15] MEDS: MULTIVITAMINS WITH MINERALS, THERAPEUTIC TABLET PO SCH (08:30)
[2021-10-15] MEDS: PredniSONE 10 MG TABLET PO SCH (08:30)
[2021-10-15] MEDS: AZITHROMYCIN 500 MG TABLET PO SCH (08:30)
[2021-10-15 08:31] VITALS: BP 124/61
[2021-10-15] MEDS: DOCUSATE SODIUM 100 MG CAPSULE PO SCH ×2 (08:33→20:05)
[2021-10-15 16:00] VITALS: BP 112/69
[2021-10-15] MEDS: TraZODone HCL 50 MG TABLET PO SCH (20:05)
[2021-10-15 20:55] VITALS: BP 125/74
[2021-10-15 23:23] VITALS: BP 144/90
[2021-10-16] MEDS: AMPICILLIN SODIUM/SULBACTAM NA 3 GM in SODIUM CHLORIDE 0.9% 100 ML IV SCH ×4 (04:46→23:41)
[2021-10-16 04:49] VITALS: BP 133/77
[2021-10-16] MEDS ORDERED: ALBUTEROL SULFATE HFA 90 MCG/PUFF 8 GM INHALER IH PRN (05:15)
[2021-10-16] MEDS ORDERED: MORPHINE SULFATE 2 MG/ML SYRINGE IVP ONE (05:30)
[2021-10-16] MEDS ORDERED: MORPHINE SULFATE 2 MG/ML SYRINGE ONE (05:30)
[2021-10-16 08:00] VITALS: BP 126/72
[2021-10-16] MEDS: SERTRALINE HCL 50 MG TABLET PO SCH (09:07)
[2021-10-16] MEDS: PANTOPRAZOLE SODIUM 40 MG DR TABLET PO SCH (09:07)
[2021-10-16] MEDS: PredniSONE 10 MG TABLET PO SCH (09:07)
[2021-10-16] MEDS: AZITHROMYCIN 500 MG TABLET PO SCH (09:07)
[2021-10-16] MEDS: DOCUSATE SODIUM 100 MG CAPSULE PO SCH ×2 (09:07→20:27)
[2021-10-16] MEDS: MULTIVITAMINS WITH MINERALS, THERAPEUTIC TABLET PO SCH (09:07)
[2021-10-16 16:00] VITALS: BP 115/67
[2021-10-16 19:52] VITALS: BP 125/79
[2021-10-16] MEDS: TraZODone HCL 50 MG TABLET PO SCH (20:27)
[2021-10-17 04:55] VITALS: BP 102/68
[2021-10-17] MEDS: AMPICILLIN SODIUM/SULBACTAM NA 3 GM in SODIUM CHLORIDE 0.9% 100 ML IV SCH ×2 (07:03→12:24)
[2021-10-17 08:09] VITALS: BP 115/74
[2021-10-17] MEDS: ACETAMINOPHEN 325 MG TABLET PO PRN (08:42)
[2021-10-17] MEDS: PANTOPRAZOLE SODIUM 40 MG DR TABLET PO SCH (08:43)
[2021-10-17] MEDS: SERTRALINE HCL 50 MG TABLET PO SCH (08:43)
[2021-10-17] MEDS: PredniSONE 10 MG TABLET PO SCH (08:43)
[2021-10-17] MEDS: MULTIVITAMINS WITH MINERALS, THERAPEUTIC TABLET PO SCH (08:43)
[2021-10-17] MEDS: AZITHROMYCIN 500 MG TABLET PO SCH (08:43)
[2021-10-17] MEDS: DOCUSATE SODIUM 100 MG CAPSULE PO SCH ×2 (08:46→20:01)
[2021-10-17] MEDS ORDERED: DOCU-385 PO (15:29)
[2021-10-17] MEDS ORDERED: MULT-248 PO (15:32)
[2021-10-17] MEDS ORDERED: AZIT-104 PO (15:34)
[2021-10-17] MEDS ORDERED: PANT-31 PO (15:36)
[2021-10-17] MEDS ORDERED: SERT-158 PO (15:37)
[2021-10-17] MEDS ORDERED: PRED-729 PO (15:37)
[2021-10-17] MEDS ORDERED: TRAZ-252 PO (15:38)
[2021-10-17] MEDS ORDERED: ACET-2247 PO (15:41)
[2021-10-17] MEDS ORDERED: ALBU8HFA IH (15:43)
[2021-10-17] MEDS ORDERED: MAGN-160 PO (15:46)
[2021-10-17] MEDS ORDERED: BISA10SU11 PR (15:46)
[2021-10-17] MEDS ORDERED: ZOLP-280 PO (15:47)
[2021-10-17 16:29] VITALS: BP 132/85
[2021-10-17] MEDS: TraZODone HCL 50 MG TABLET PO SCH (20:01)
[2021-10-17 20:11] VITALS: BP 132/90
== END 2021-10-17 21:05 | DRG 917 ==
LOC: EMS 14:02 → 5N 21:18 → 6S 09-25 15:15
PROVIDERS: ADMIT Internal Medicine; ATTEND Internal Medicine
DX: T40.411A Poisoning by fentanyl or fentanyl analogs, accidental (unintentional), initial encounter (principal); J96.91 Respiratory failure, unspecified with hypoxia; J69.0 Pneumonitis due to inhalation of food and vomit; G92.9 Unspecified toxic encephalopathy; F11.13 Opioid abuse with withdrawal; F41.9 Anxiety disorder, unspecified; Z20.822 Contact with and (suspected) exposure to COVID-19; R73.9 Hyperglycemia, unspecified; R91.8 Other nonspecific abnormal finding of lung field; D72.829 Elevated white blood cell count, unspecified; F15.21 Other stimulant dependence, in remission; R00.0 Tachycardia, unspecified; F17.200 Nicotine dependence, unspecified, uncomplicated; Z91.013 Allergy to seafood; Y92.89 Other specified places as the place of occurrence of the external cause; Z87.898 Personal history of other specified conditions
CPT/HCPCS: 36600; 70450; 71045; 71250; 71275; 72100; 74176; 80048; 80053; 80307; 81001; 82805; 82962; 83880; 84145; 84443; 84484; 85025; 85379; 85610; 85730; 86171; 86480; 86738; 87015; 87040; 87081; 87206; 87389; 87556; 93005; 93306; 94640; 99285; J0295; J1644; J1885; J1956; J2060; J2270; J2310; J2405; J2920; J3535; J7030; J7040; J7050; Q9967; 36415-L1; 36415-TC; J7512; U0003; Z7610